=== PATIENT | female | born 1995 | race African-American/Black ===

== ENCOUNTER 2017-11-08 19:18 | Emergency (ER) | payer OTHER ==
[~2017-11-08] VITALS: Ht 162.6 cm; Wt 85.3 kg
[2017-11-08] MEDS ORDERED: NKM (19:27)
[2017-11-08] MEDS ORDERED: Ketorolac 60mg Inj IM ONE (19:45)
[2017-11-08] MEDS ORDERED: Methocarbamol 750mg tab ORAL ONE (19:45)
--- NOTE | 2017-11-08 19:47 | Emergency Room Report ---
History of Present Illness General Chief Complaint: Lower Back Pain or Injury Source: Patient Present Illness HPI 22-year-old female presents to the emergency department complaining of 8 out of 10 in severity bilateral flank pain with primary pain on the right side 2 days. Patient also reports several episodes of nausea she denies vomiting she denies blood in the stool. She reports some intermittent constipation last bowel movement was 2 days ago denies diarrhea, recent travel, fevers, chills, abdominal tenderness. She reports last menstrual period was 1-2 weeks ago she states she is not regular and has a period every 2 months approximately. Patient denies being sexually active. Patient denies hematuria, dysuria, urinary frequency, urgency. Denies trauma, fall or recent strenuous activity. Patient states she has not taken medications for her symptoms she reports pain is exacerbated upon standing up straight, bending over and changing positions. Denies numbness tingling or loss of sensation or gross motor movements of the extremities, incontinence of bowel or bladder. Denies CP, Palpitations, LOC, AMS , dizziness, Changes in Vision, Sensation, paresthesias, or a sudden severe headache. Allergies: Coded Allergies: No Known Allergies (Unverified , 11/08/17) Patient History Past Medical History: see triage record Past Surgical History: none Pertinent Family History: none Last Menstrual Period: "two weeks ago" Now: No Reviewed Nursing Documentation: PMH: Agreed; PSxH: Agreed Nursing Documentation-PMH Past Medical History: No Stated History Review of Systems All Other Systems: negative except mentioned in HPI Physical Exam Vital Signs Date Time Temp Pulse Resp B/P (MAP) Pulse Ox O2 Delivery O2 Flow Rate FiO2 11/08/17 19:23 98.7 76 18 115/59 99 Room Air 98.8 Sp02 EP Interpretation: reviewed, normal General Appearance: no apparent distress, alert, GCS 15, non-toxic Head: normocephalic, atraumatic ENT: hearing grossly normal, normal voice Neck: full range of motion, no bony tend Respiratory: chest non-tender, lungs clear, normal breath sounds, no wheezing, speaking full sentences Cardiovascular #1: regular rate, rhythm Gastrointestinal: normal bowel sounds, non tender, soft, non-distended, no guarding Rectal: deferred Genitourinary: normal inspection, no CVA tenderness Musculoskeletal: back normal, gait/station normal, normal range of motion - with pain exacerbation upon flexion at 20*, tender - Paraspinal ttp to the lumbar and lower thoracic musculature, no midline spinal pain. Neurologic: alert, oriented x3, responsive, motor strength/tone normal, sensory intact, normal gait, speech normal, grossly normal Psychiatric: judgement/insight normal Skin: normal color, no rash, warm/dry, well hydrated Medical Decision Making PA Attestation Dr. Bauer is my supervising Physician whom patient management has been discussed with. Diagnostic Impression: Primary Impression: UTI (urinary tract infection) Qualified Codes: N30.00 - Acute cystitis without hematuria Additional Impression: Back pain Qualified Codes: M54.5 - Low back pain ER Course 22-year-old female presents to the emergency department complaining of 8 out of 10 in severity bilateral flank pain with primary pain on the right side 2 days. Patient also reports several episodes of nausea she denies vomiting she denies blood in the stool. She reports some intermittent constipation last bowel movement was 2 days ago denies diarrhea, recent travel, fevers, chills, abdominal tenderness. She reports last menstrual period was 1-2 weeks ago she states she is not regular and has a period every 2 months approximately. Patient denies being sexually active. Patient denies hematuria, dysuria, urinary frequency, urgency. Denies trauma, fall or recent strenuous activity. Patient states she has not taken medications for her symptoms she reports pain is exacerbated upon standing up straight, bending over and changing positions. Denies numbness tingling or loss of sensation or gross motor movements of the extremities, incontinence of bowel or bladder. Denies CP, Palpitations, LOC, AMS , dizziness, Changes in Vision, Sensation, paresthesias, or a sudden severe headache. Ddx considered but are not limited to Diverticulitis, acute appendicitis, diarrhea,UC, PUD, GE, pancreatitis, gallstone, kidney stone, pyelonephritis, UTI , obstruction, muscle spasm, fracture, sciatica, neoplasm /abscess. Vital signs: are WNL, pt. is afebrile H&PE are most consistent with Suspect muscular skeletal origin of pain will evaluate urine for infection, or signs of stones. Physical exam is relatively benign patient is nontoxic in appearance in no acute distress. No indication of acute abdominal process. ORDERS: -UA: 3+ leukocytes with occasional bacteria will treat for UTI. nitrite negative. -Urine hCG: Negative ED INTERVENTIONS: -- Toradol IM 20 mg -750 mg Robaxin -Zofran 4 mg DISCHARGE: At this time pt. is stable for d/c to home. Will provide printed patient care instructions, and any necessary prescriptions. Care plan and follow up instructions have been discussed with the patient prior to discharge. Labs Test 11/08/17 20:40 Urine Color Pale yellow Urine Appearance Clear Urine pH 6 (4.5-8.0) Urine Specific [place] 1.010 (1.005-1.035) Urine Protein Negative (NEGATIVE) Urine Glucose (UA) Negative (NEGATIVE) Urine Ketones Negative (NEGATIVE) Urine Occult Blood Negative (NEGATIVE) Urine Nitrite Negative (NEGATIVE) Urine Bilirubin Negative (NEGATIVE) Urine Urobilinogen Normal MG/DL (0.0-1.0) Urine Leukocyte Esterase 3+ (NEGATIVE) Urine RBC 0-2 /HPF (0 - 2) Urine WBC 2-4 /HPF (0 - 2) Urine Squamous Epithelial Cells Few /LPF (NONE/OCC) Urine Bacteria Few /HPF (NONE) Urine HCG, Qualitative Negative (NEGATIVE) Last Vital Signs Date Time Temp Pulse Resp B/P (MAP) Pulse Ox O2 Delivery O2 Flow Rate FiO2 11/08/17 19:23 98.7 76 18 115/59 99 Room Air 98.8 Disposition: HOME, SELF-CARE Condition: Stable Scripts Methocarbamol* (ROBAXIN*) 500 Mg Tablet 500 MG PO TID for 7 Days, #21 TAB 0 Refills Prov: Veronica Dasilva 11/08/17 Nitrofurantoin Monohyd/M-Cryst* (MACROBID 100 MG*) 100 Mg Capsule 100 MG ORAL EVERY 12 HOURS for 5 Days, #10 CAP Prov: Veronica Dasilva 11/08/17 Patient Instructions: Urinary Tract Infection, [id number] Additional Instructions: Take medications as directed. Follow up with a Primary Care Provider in 3-5 days, even if your symptoms have resolved. --Please review list of primary care clinics, if you do not already have a primary care provider Return sooner to ED if new symptoms occur, or current symptoms become worse. Do not drink alcohol, drive, or operate heavy machinery while taking Robaxin/ Muscle Relaxers as this may cause drowsiness. - Please note that this Emergency Department Report was dictated using [employer] house worker technology software, occasionally this can lead to erroneous entry secondary to interpretation by the dictation equipment. Veronica Dasilva Nov 08, 2017 19:47
[2017-11-08 19:50] VITALS: BP 115/59
[2017-11-08 21:06] LABS: APPEARANCE,URINE CLEAR; BILIRUBIN, URINE NEGATIVE (NEGATIVE); COLOR,URINE PALE YELLOW; GLUCOSE, URINE (UA) NEGATIVE (NEGATIVE); KETONES,URINE NEGATIVE (NEGATIVE); LEUKOCYTE ESTERASE ,URINE 3+ (NEGATIVE); NITRITE,URINE NEGATIVE (NEGATIVE); PH,URINE 6 (4.5-8.0); PROTEIN,URINE NEGATIVE (NEGATIVE); UROBILINOGEN,URINE NORMAL MG/DL (0.0-1.0)
[2017-11-08] MEDS ORDERED: ROBAXIN500 MG PO (21:24)
[2017-11-08] MEDS ORDERED: NITROFURANTOIN100 M2 ORAL (21:24)
[2017-11-08 21:36] VITALS: BP 110/61
== END 2017-11-08 21:35 | disposition home or self-care (01) ==
LOC: EMR 19:35
DX: N39.0 Urinary tract infection, site not specified (principal); M54.5 Low back pain
CPT/HCPCS: 81003; 81025; 96372; 99284

== ENCOUNTER 2018-02-07 20:24 | Emergency (ER) | payer OTHER ==
[~2018-02-07] VITALS: Ht 162.6 cm; Wt 83.9 kg
[~2018-02-07 20:24] MED LIST: NITROFURANTOIN100 M2 ORAL; NKM; ROBAXIN500 MG PO
--- NOTE | 2018-02-07 20:46 | Emergency Room Report ---
History of Present Illness General Chief Complaint: Chest Pain Source: Patient Present Illness HPI 22-year-old female with no medical problems, not on any meds, denies is fevers, presents with midsternal nonradiating sharp chest pain worse with taking deep breaths. Symptoms aren't yesterday, has not recommend medications for it, has no other alleviating or gasping factors. Denies fevers chills but does report shortness of breath. Denies leg pain leg swelling cough hemoptysis any other problems. Allergies: Uncoded Allergies: PEACHES (Allergy, Unknown, Hives, 02/07/18) Patient History Past Medical History: see triage record Last Menstrual Period: 01/2018 Now: No Reviewed Nursing Documentation: PMH: Agreed; PSxH: Agreed Nursing Documentation-PMH Past Medical History: No Stated History Review of Systems All Other Systems: negative except mentioned in HPI Physical Exam Vital Signs Date Time Temp Pulse Resp B/P (MAP) Pulse Ox O2 Delivery O2 Flow Rate FiO2 02/07/18 20:34 98.6 91 16 146/84 98 Room Air 98.6 Sp02 EP Interpretation: reviewed, normal General Appearance: no apparent distress, alert, non-toxic Head: normocephalic Eyes: bilateral eye normal inspection, bilateral eye PERRL, bilateral eye EOMI ENT: normal ENT inspection, hearing grossly normal, normal pharynx, no angioedema, normal voice, moist mucus membranes Neck: normal inspection, full range of motion, supple, supple/symm/no masses Respiratory: chest non-tender, lungs clear, normal breath sounds, chest symmetrical, palpation of chest normal Cardiovascular #1: normal peripheral pulses, regular rate, rhythm Cardiovascular #2: 2+ radial (R), 2+ radial (L) Gastrointestinal: normal inspection, non tender, soft, no mass, no guarding, no rebound Rectal: deferred Genitourinary: normal inspection, no CVA tenderness Musculoskeletal: back normal, gait/station normal, normal range of motion, non- tender, no calf tenderness, Kalpana's Sign negative Neurologic: alert, responsive, deployment manager III-XII nml as tested, motor strength/tone normal, sensory intact, speech normal Psychiatric: judgement/insight normal, memory normal, mood/affect normal, no suicidal/homicidal ideation Skin: normal color, no rash, warm/dry, normal turgor Lymphatic: no adenopathy Medical Decision Making Diagnostic Impression: Primary Impression: Chest pain ER Course 22-year-old female with respirophasic chest pain, appears in no extremities, has no risk factors for PE other than a reported family history of hands with blood clots. She has no signs or symptoms of DVT, we'll obtain basic labs EKG chest x-ray d-dimer and treat with ibuprofen for now. Patient's HR improved to the 70's, she feels better. I suspect most likely pleurisy and will dc with rx for ibuprofen if d-dimer negative. EKG Diagnostic Results EKG Time: 20:42 EP Interpretation: no st-t changes, no twi's Rate: tachycardiac Rhythm: NSR ST Segments: no acute changes ASA given to the pt in ED: No Rhythm Strip Diag. Results Rhythm Strip Time: 21:20 EP Interpretation: yes Rate: 74 Rhythm: NSR, no PVC's, no ectopy Chest X-Ray Diagnostic Results Chest X-Ray Diagnostic Results : Chest X-Ray Ordered: Yes # of Views/Limited/Complete: 1 View Indication: Chest Pain EP Interpretation: Yes Interpretation: no consolidation, no effusion, no pneumothorax, no acute cardiopulmonary disease Impression: No acute disease Electronically Signed by: Rebekah Ruff MD Last Vital Signs Date Time Temp Pulse Resp B/P (MAP) Pulse Ox O2 Delivery O2 Flow Rate FiO2 02/07/18 20:34 98.6 91 16 146/84 98 Room Air 98.6 Scripts Ibuprofen* (MOTRIN*) 600 Mg Tablet 600 MG ORAL THREE TIMES A DAY, #20 TAB 0 Refills Prov: REBEKAH RUFF M.D 02/07/18 REBEKAH RUFF M.D Feb 07, 2018 20:46
[2018-02-07 20:57] VITALS: BP 149/84
[2018-02-07 21:14] LABS: BASOPHILS % (AUTO) 1.2 % (0.0-2.0); EOSINOPHILS % (AUTO) 0.3 % (0.0-3.0); HEMATOCRIT 37.4 % (37.0-47.0); HEMOGLOBIN 12.2 G/DL (12.0-16.0); LYMPHOCYTES % (AUTO) 17.7 % (20.0-45.0); MEAN CORPUSCULAR VOLUME 80 FL (80-99); MONOCYTES % (AUTO) 7.5 % (1.0-10.0); NEUTROPHILS % (AUTO) 73.3 % (45.0-75.0); PLATELET COUNT 288 K/UL (150-450); RED BLOOD COUNT 4.67 M/UL (4.20-5.40); RED CELL DISTRIBUTION WIDTH 12.4 % (11.6-14.8); WHITE BLOOD COUNT 14.4 K/UL (4.8-10.8)
[2018-02-07] MEDS ORDERED: IBUPROFEN600 MG ORAL (21:23)
[2018-02-07 21:25] LABS: ANION GAP 12 mmol/L (5-15); BLOOD UREA NITROGEN 12 mg/dL (7-18); CALCIUM 9.3 MG/DL (8.5-10.1); CARBON DIOXIDE 23 MMOL/L (21-32); CHLORIDE 102 MMOL/L (98-107); CREATININE 0.9 MG/DL (0.55-1.30); POTASSIUM 3.5 MMOL/L (3.5-5.1); SODIUM 137 MMOL/L (136-145)
[2018-02-07 21:29] LABS: ALANINE AMINOTRANSFERASE 17 U/L (12-78); ALBUMIN 3.9 G/DL (3.4-5.0); ALBUMIN/GLOBULIN RATIO 0.8 (1.0-2.7); ALKALINE PHOSPHATASE 71 U/L (46-116); ASPARTATE AMINO TRANSFERASE 15 U/L (15-37); BILIRUBIN,TOTAL 0.4 MG/DL (0.2-1.0)
[2018-02-07 21:49] VITALS: BP 125/76
--- NOTE | 2018-02-08 11:17 | Diagnostic Imaging Report ---
Indication: Chest pain Comparison: None A single view chest radiograph was obtained. Findings: Cardiomediastinal appearance is within normal limits for age. Pulmonary vascularity is appropriate. The diaphragmatic contour is smooth and costophrenic angles are sharp. No pleural effusions are identified. The bones are unremarkable. Impression: No acute findings
--- NOTE | 2018-02-09 00:36 | Cardiology Report ---
APPROVED REPORT EKG Measurement Heart [id number] ID [id number] Sinus tachycardia Possible Left atrial enlargement Borderline ECG
== END 2018-02-07 21:53 | disposition home or self-care (01) ==
LOC: EMR 21:52
DX: R07.9 Chest pain, unspecified (principal); Z91.018 Allergy to other foods; R00.0 Tachycardia, unspecified
CPT/HCPCS: 36415; 71045; 80053; 84484; 85025; 85379; 93005; 99283

== ENCOUNTER 2018-02-17 06:56 | Emergency (ER) | payer OTHER ==
[~2018-02-17] VITALS: Ht 162.6 cm; Wt 85.3 kg
[~2018-02-17 06:56] MED LIST changes: +IBUPROFEN600 MG ORAL
[2018-02-17] MEDS ORDERED: DiphenhydrAMINE 50mg/ml Inj IVP ONE (07:30)
[2018-02-17] MEDS ORDERED: Metoclopramide 10mg/2ml Inj IVP ONE (07:30)
[2018-02-17 08:18] LABS: BASOPHILS % (AUTO) 0.8 % (0.0-2.0); EOSINOPHILS % (AUTO) 0.8 % (0.0-3.0); HEMATOCRIT 37.7 % (37.0-47.0); LYMPHOCYTES % (AUTO) 25.2 % (20.0-45.0); MEAN CORPUSCULAR VOLUME 81 FL (80-99); MONOCYTES % (AUTO) 8.6 % (1.0-10.0); NEUTROPHILS % (AUTO) 64.6 % (45.0-75.0); PLATELET COUNT 309 K/UL (150-450); RED BLOOD COUNT 4.63 M/UL (4.20-5.40); RED CELL DISTRIBUTION WIDTH 12.5 % (11.6-14.8); WHITE BLOOD COUNT 7.3 K/UL (4.8-10.8)
[2018-02-17 08:22] LABS: APPEARANCE,URINE TURBID; BILIRUBIN, URINE NEGATIVE (NEGATIVE); GLUCOSE, URINE (UA) NEGATIVE (NEGATIVE); KETONES,URINE 1+ (NEGATIVE); LEUKOCYTE ESTERASE ,URINE 1+ (NEGATIVE); NITRITE,URINE NEGATIVE (NEGATIVE); PH,URINE 5 (4.5-8.0); PROTEIN,URINE 2+ (NEGATIVE); UROBILINOGEN,URINE 1 MG/DL (0.0-1.0)
[2018-02-17 08:25] LABS: COLOR,URINE YELLOW
[2018-02-17 08:32] LABS: ANION GAP 9 mmol/L (5-15); BLOOD UREA NITROGEN 12 mg/dL (7-18); CALCIUM 8.9 MG/DL (8.5-10.1); CARBON DIOXIDE 27 MMOL/L (21-32); CHLORIDE 106 MMOL/L (98-107); CREATININE 0.9 MG/DL (0.55-1.30); POTASSIUM 3.4 MMOL/L (3.5-5.1); SODIUM 141 MMOL/L (136-145)
[2018-02-17 08:37] LABS: ALANINE AMINOTRANSFERASE 16 U/L (12-78); ALBUMIN 3.7 G/DL (3.4-5.0); ALBUMIN/GLOBULIN RATIO 0.9 (1.0-2.7); ALKALINE PHOSPHATASE 69 U/L (46-116); ASPARTATE AMINO TRANSFERASE 11 U/L (15-37); BILIRUBIN,TOTAL 0.5 MG/DL (0.2-1.0)
--- NOTE | 2018-02-17 08:57 | Emergency Room Report ---
History of Present Illness General Chief Complaint: Abdominal Pain Source: Patient Present Illness HPI Patient presents with vomiting and epigastric pain. This been going on for several days. She states she can't eat anything because it comes back up including water and causes pain. The pain is sharp and epigastric. Pain rated 9/10, worsened with eating or drinking. No meds taken. No melena, hematemesis. In addition to that she is under a lot of stress. Mainly relationship. She does have a job. She feels safe at home. She's not had any help for the stress. Depressed but no SI or HI. Her last period was 2 days ago. Was normal. No fevers, chest pain, dyspnea, rashes, dysuria, joint pain. 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 Last Menstrual Period: 02/15/18 Now: No Reviewed Nursing Documentation: PMH: Agreed; PSxH: Agreed Nursing Documentation-PMH Past Medical History: No Stated History Review of Systems All Other Systems: negative except mentioned in HPI Physical Exam Vital Signs Date Time Temp Pulse Resp B/P (MAP) Pulse Ox O2 Delivery O2 Flow Rate FiO2 02/17/18 07:13 98.5 73 16 121/72 97 Room Air 98.4 Sp02 EP Interpretation: reviewed, normal General Appearance: well appearing, no apparent distress, GCS 15 Head: normocephalic Eyes: bilateral eye normal inspection, bilateral eye PERRL ENT: moist mucus membranes - braces Neck: supple Respiratory: lungs clear, normal breath sounds Cardiovascular #1: regular rate, rhythm Cardiovascular #2: 2+ radial (R) Gastrointestinal: normal inspection, normal bowel sounds, no mass, non- distended, no guarding, no rebound, tenderness - epgastric reported Genitourinary: no CVA tenderness Musculoskeletal: back normal, gait/station normal, normal range of motion Neurologic: alert, oriented x3, grossly normal Psychiatric: no suicidal/homicidal ideation, depressed affect - and tearful Skin: normal inspection, warm/dry Medical Decision Making Diagnostic Impression: Primary Impression: Abdominal pain Qualified Codes: R10.13 - Epigastric pain Additional Impressions: UTI (urinary tract infection) Qualified Codes: N30.00 - Acute cystitis without hematuria Stress ER Course Patient presents with epigastric pain and increased stress. DDX: gastritis, GERD, PUD, pancreatitis amongst others. Significant stress component. Evaluation with EKG, CXR, labs. Treatment with IV hydration, pepcid, reglan, benadryl. Also will give tylenol. EKG no injury. CXR normal. Labs unremarkable except for pyuria. Pain resolved. Reluctant to drink juice, but tolerated water without difficulty. Discussion about stress. Moved to [place] and relationship fell apart. Now away from family. Discussed seeking help. Also need for re-evaluation of epigastric pain. Patient improved. Stable for outpatient observation and treatment. Laboratory Tests Test 02/17/18 07:50 White Blood Count 7.3 K/UL (4.8-10.8) Red Blood Count 4.63 M/UL (4.20-5.40) Hemoglobin 12.0 G/DL (12.0-16.0) Hematocrit 37.7 % (37.0-47.0) Mean Corpuscular Volume 81 FL (80-99) Mean Corpuscular Hemoglobin 25.8 PG (27.0-31.0) L Mean Corpuscular Hemoglobin Concent 31.7 G/DL (32.0-36.0) L Red Cell Distribution Width 12.5 % (11.6-14.8) Platelet Count 309 K/UL (150-450) Mean Platelet Volume 7.0 FL (6.5-10.1) Neutrophils (%) (Auto) 64.6 % (45.0-75.0) Lymphocytes (%) (Auto) 25.2 % (20.0-45.0) Monocytes (%) (Auto) 8.6 % (1.0-10.0) Eosinophils (%) (Auto) 0.8 % (0.0-3.0) Basophils (%) (Auto) 0.8 % (0.0-2.0) Urine Color Yellow Urine Appearance Turbid Urine pH 5 (4.5-8.0) Urine Specific [place] 1.030 (1.005-1.035) Urine Protein 2+ (NEGATIVE) H Urine Glucose (UA) Negative (NEGATIVE) Urine Ketones 1+ (NEGATIVE) H Urine Occult Blood 4+ (NEGATIVE) H Urine Nitrite Negative (NEGATIVE) Urine Bilirubin Negative (NEGATIVE) Urine Urobilinogen 1 MG/DL (0.0-1.0) H Urine Leukocyte Esterase 1+ (NEGATIVE) H Urine RBC 2-4 /HPF (0 - 2) H Urine WBC 5-10 /HPF (0 - 2) H Urine Squamous Epithelial Cells Few /LPF (NONE/OCC) Urine Bacteria Few /HPF (NONE) Urine Mucus Many /LPF (NONE/OCC) H Urine HCG, Qualitative Negative (NEGATIVE) Sodium Level 141 MMOL/L (136-145) Potassium Level 3.4 MMOL/L (3.5-5.1) L Chloride Level 106 MMOL/L (98-107) Carbon Dioxide Level 27 MMOL/L (21-32) Anion Gap 9 mmol/L (5-15) Blood Urea Nitrogen 12 mg/dL (7-18) Creatinine 0.9 MG/DL (0.55-1.30) Estimate Glomerular Filtration Rate > 60 mL/min (>60) Glucose Level 101 MG/DL (74-106) Calcium Level 8.9 MG/DL (8.5-10.1) Total Bilirubin 0.5 MG/DL (0.2-1.0) Aspartate Amino Transferase (AST) 11 U/L (15-37) L Alanine Aminotransferase (ALT) 16 U/L (12-78) Alkaline Phosphatase 69 U/L (46-116) Total Protein 7.9 G/DL (6.4-8.2) Albumin 3.7 G/DL (3.4-5.0) Globulin 4.2 g/dL Albumin/Globulin Ratio 0.9 (1.0-2.7) L Lipase 182 U/L (73-393) EKG Diagnostic Results Rate: normal Rhythm: NSR ST Segments: no acute changes Rhythm Strip Diag. Results EP Interpretation: yes Rhythm: NSR, no PVC's, no ectopy Chest X-Ray Diagnostic Results Chest X-Ray Diagnostic Results : Chest X-Ray Ordered: Yes # of Views/Limited/Complete: 1 View Indication: Other EP Interpretation: Yes Interpretation: no consolidation, no effusion, no pneumothorax Impression: No acute disease Electronically Signed by: Electronically signed by Eitan Beltran MD Last Vital Signs Date Time Temp Pulse Resp B/P (MAP) Pulse Ox O2 Delivery O2 Flow Rate FiO2 02/17/18 11:30 89 18 122/77 99 Room Air 02/17/18 10:31 98.8 98.8 Status: improved Disposition: HOME, SELF-CARE Condition: Improved Scripts Ondansetron Odt* (ZOFRAN ODT*) 4 Mg Tab.rapdis 4 MG BC EVERY 8 HOURS, #10 TAB 0 Refills Prov: Eitan Beltran M.D. 02/17/18 Famotidine (PEPCID AC) 20 Mg Tablet 20 MG PO DAILY, #20 TAB 1 Refill Prov: Eitan Beltran M.D. 02/17/18 Nitrofurantoin Monohyd/M-Cryst* (MACROBID 100 MG*) 100 Mg Capsule 100 MG ORAL EVERY 12 HOURS, #14 CAP Prov: Eitan Beltran M.D. 02/17/18 Referrals: NOT APPLICABLE THIS PATIENT,RE (PCP) Eitan Beltran M.D. Feb 17, 2018 08:57
[2018-02-17] MEDS ORDERED: cefTRIAXone 1 GM in NS 55 ML IVPB ONE (10:00)
[2018-02-17 10:31] VITALS: BP 127/78
[2018-02-17] MEDS ORDERED: PEPCID AC20 M2 PO (11:17)
[2018-02-17] MEDS ORDERED: ONDANSETRON ODT4 MG BC (11:17)
[2018-02-17] MEDS ORDERED: NITROFURANTOIN100 M2 ORAL (11:17)
[2018-02-17 11:30] VITALS: BP 122/77
--- NOTE | 2018-02-17 11:30 | Diagnostic Imaging Report ---
Indication: Chest pain Comparison: February 07, 2018 A single view chest radiograph was obtained. Findings: Cardiomediastinal appearance is within normal limits for age. Pulmonary vascularity is appropriate. The diaphragmatic contour is smooth and costophrenic angles are sharp. No pleural effusions are identified. The bones are unremarkable. Impression: No acute findings
--- NOTE | 2018-02-20 12:21 | Cardiology Report ---
APPROVED REPORT EKG Measurement Heart [id number] AL [id number] Normal sinus rhythm with sinus arrhythmia Normal ECG
== END 2018-02-17 12:14 | disposition home or self-care (01) ==
LOC: EMR 07:36
DX: N30.00 Acute cystitis without hematuria (principal); R10.13 Epigastric pain; F43.9 Reaction to severe stress, unspecified; Z91.018 Allergy to other foods; R07.9 Chest pain, unspecified
CPT/HCPCS: 36415; 71045; 80053; 81003; 81025; 83690; 85025; 93005; 99284; J0696; J1200; J2765; S0028

== ENCOUNTER 2018-09-29 08:38 | Emergency (ER) | payer OTHER ==
[~2018-09-29] VITALS: Ht 162.6 cm; Wt 81.6 kg
[~2018-09-29 08:38] MED LIST changes: +ONDANSETRON ODT4 MG BC; +PEPCID AC20 M2 PO
--- NOTE | 2018-09-29 08:44 | Emergency Room Report ---
History of Present Illness General Chief Complaint: To Be Triaged Source: Patient Present Illness HPI 23-year-old female presents with sore throat, odynophagia, hoarse voice for the past few days, reports + h/o same multiple times over the years. She denies blurred vision, f/c, cough, neck stiffness. She reports constant pain, moderate intensity, and hasn't tried meds for it. Allergies: Uncoded Allergies: PEACHES (Allergy, Unknown, Hives, 02/07/18) Patient History Past Medical History: see triage record Reviewed Nursing Documentation: PMH: Agreed; PSxH: Agreed Review of Systems All Other Systems: negative except mentioned in HPI Physical Exam Sp02 EP Interpretation: reviewed, normal General Appearance: no apparent distress, alert, non-toxic Head: normocephalic Eyes: bilateral eye normal inspection, bilateral eye PERRL, bilateral eye EOMI ENT: normal ENT inspection, hearing grossly normal, no angioedema, normal voice - slightly hoarse, TMs + canals normal, uvula midline, moist mucus membranes, tonsillar swelling, pharyngeal erythema, tonsillar exudate - B/L symmetrical erythema/exudates, but patent airway, no suspicions for abscess Neck: normal inspection, full range of motion, supple, supple/symm/no masses Respiratory: chest non-tender, lungs clear, normal breath sounds, no rhonchi, no respiratory distress, no retraction, no accessory muscle use, speaking full sentences - no stridor, no hot potato voice, chest symmetrical, palpation of chest normal Cardiovascular #1: normal peripheral pulses, regular rate, rhythm Cardiovascular #2: 2+ radial (R), 2+ radial (L) Gastrointestinal: normal inspection, non tender, soft, no mass, no guarding, no rebound Rectal: deferred Genitourinary: normal inspection, no CVA tenderness Musculoskeletal: back normal, gait/station normal, normal range of motion, non- tender, no calf tenderness Neurologic: alert, responsive, inker machine III-XII nml as tested, motor strength/tone normal, sensory intact, speech normal Psychiatric: judgement/insight normal, memory normal, mood/affect normal Skin: normal color, no rash, warm/dry, normal turgor Lymphatic: adenopathy - b/l submandibular LAD, slighlty prominent and tender symmetrically Medical Decision Making Diagnostic Impression: Primary Impression: Acute pharyngitis ER Course Patient with likely strep tonsillitis, was given im penicillin, decadron , will dc with ENT f/u recs for tonsillectomy. Disposition: HOME, SELF-CARE Condition: Stable Scripts Ibuprofen* (MOTRIN*) 600 Mg Tablet 600 MG ORAL Q8H PRN for For Pain, #10 TAB 0 Refills Prov: REBEKAH RUFF M.D 09/29/18 Benzonatate* (TESSALON PERLRita*) 100 Mg Capsule 100 MG ORAL THREE TIMES A DAY for 3 Days, #10 PERLE Prov: REBEKAH RUFF M.D 09/29/18 REBEKAH RUFF M.D Sep 29, 2018 08:44
[2018-09-29] MEDS ORDERED: TESSALON PERLE100 MG ORAL (08:46)
[2018-09-29] MEDS ORDERED: IBUPROFEN600 MG ORAL (08:46)
[2018-09-29 08:50] VITALS: BP 124/76
--- NOTE | 2018-09-29 08:52 | NUR ---
ED Nurse Note: patient walked in from home c/o sore throat, headache x 2 days; patient denies any fever or chills.
[2018-09-29] MEDS ORDERED: Ketorolac 30mg Inj IM ONE (09:00)
[2018-09-29] MEDS ORDERED: Bicillin LA 1.2MMU/2ML SYR IM ONE (09:00)
[2018-09-29] MEDS ORDERED: Dexamethasone 4mg/ml vial IM ONE (09:00)
--- NOTE | 2018-09-29 09:03 | NUR ---
ED Nurse Note: verified with patient that patient has no known drug allergy. patient denies allergy to pcn, pt is a/o x4,
[2018-09-29] MEDS ORDERED: Dexamethasone 4mg/ml vial ONE (09:04)
[2018-09-29 09:14] VITALS: BP 124/76
--- NOTE | 2018-09-29 09:15 | NUR ---
ER DISCHARGE NOTE: Patient is cleared to be discharged per ERMD, pt is aox4, on room air, with stable vital signs. pt was given dc and prescription instructions, pt was able to verbalize understanding, pt id band removed. pt is able to ambulate with steady gait. pt took all belongings.
== END 2018-09-29 09:25 | disposition home or self-care (01) ==
LOC: EMR 09:07
DX: J02.9 Acute pharyngitis, unspecified (principal)
CPT/HCPCS: 96372; 99283; J0561; J1100; J1885

== ENCOUNTER 2018-10-02 08:52 | Emergency (ER) | payer OTHER ==
[~2018-10-02] VITALS: Ht 162.6 cm; Wt 88.5 kg
[~2018-10-02 08:52] MED LIST changes: +TESSALON PERLE100 MG ORAL
[2018-10-02 09:04] VITALS: BP 120/71
--- NOTE | 2018-10-02 09:06 | NUR ---
ED Nurse Note: Pt walked in to ER c/o sore throat 04/18 and earache. per pt, she was her at [facility] ER 2 days ago and received a shot which she does not remember the name. but sore throat gets worse and she felt like she could not breath when she woke up this morning because of swollen and dry throat. pt aao x4 and calm. skin clean and intact.
--- NOTE | 2018-10-02 09:10 | NUR ---
ED Nurse Note: inspected pt's throat and white mucus lesion noted.
--- NOTE | 2018-10-02 10:18 | NUR ---
ED Nurse Note: ERMD at bedside talking to pt.
--- NOTE | 2018-10-02 10:22 | Emergency Room Report ---
History of Present Illness General Chief Complaint: Sore Throat Source: Patient Present Illness HPI 23-year-old female otherwise healthy, who was seen here several days ago and was apparently given shots of Decadron and penicillin. She returns with worsening throat pain. She feels like her throat is closing. She denies any fever. She denies any change in voice. She denies any vomiting. She denies any abdominal pain. She denies any drooling. Allergies: Uncoded Allergies: PEACHES (Allergy, Unknown, Hives, 02/07/18) Patient History Past Surgical History: none Pertinent Family History: none Now: No Nursing Documentation-[facility] Past Medical History: No Stated History Review of Systems All Other Systems: negative except mentioned in HPI Physical Exam Vital Signs Date Time Temp Pulse Resp B/P (MAP) Pulse Ox O2 Delivery O2 Flow Rate FiO2 10/02/18 08:57 98.4 66 18 120/71 98 Room Air General Appearance: well appearing, no apparent distress ENT: hearing grossly normal, no angioedema, normal voice, uvula midline, pharyngeal erythema, tonsillar exudate Respiratory: no respiratory distress, speaking full sentences Cardiovascular #1: normal inspection, regular rate, rhythm, no edema Gastrointestinal: non tender, soft Musculoskeletal: normal inspection, back normal Neurologic: normal inspection, alert, oriented x3 Medical Decision Making Diagnostic Impression: Primary Impression: Tonsillitis ER Course Patient has had multiple bedside evaluations. Particularly very concerned about abscess. I also considered peritonsillar abscess, epiglottitis, retropharyngeal abscess. I did review the patient's record. The patient did receive Decadron several days ago. The patient also received penicillin. CT was reviewed. It showed no evidence of abscess. We will start the patient on stronger pain medication. I'm also advised the patient to continue with the ibuprofen. I also advised the patient for several more Garbo. And we will also start the patient on clindamycin by mouth she was given an emergent dose of IV clindamycin in the emergency department. Last Vital Signs Date Time Temp Pulse Resp B/P (MAP) Pulse Ox O2 Delivery O2 Flow Rate FiO2 10/02/18 09:04 98.4 67 18 120/71 98 Room Air Status: improved Disposition: HOME, SELF-CARE Condition: Stable Scripts Hydrocodone/Acetaminophen 7.5-325* (HYDROCODON-ACETAMINOPH 7.5-325*) 1 Each Tablet 1 TAB ORAL Q6H PRN for For Pain, #10 TAB 0 Refills Prov: ROBBIN PECK 10/02/18 Clindamycin Hcl (CLINDAMYCIN HCL) 300 Mg Capsule 300 MG ORAL THREE TIMES A DAY, #21 CAP Prov: ROBBIN PECK 10/02/18 Patient Instructions: Tonsillitis ROBBIN PECK Oct 02, 2018 10:22
[2018-10-02] MEDS ORDERED: Isovue-300 100ml vial INJ PRN (10:30)
[2018-10-02] MEDS ORDERED: Morphine Sulfate 4mg/ml Inj (IV USE ONLY) IVP ONE (10:30)
[2018-10-02] MEDS ORDERED: Clindamycin 600mg 50 ML IVPB ONE (10:30)
[2018-10-02 10:58] LABS: EOSINOPHILS % (AUTO) 1.9 % (0.0-3.0); LYMPHOCYTES % (AUTO) 23.2 % (20.0-45.0); MEAN CORPUSCULAR VOLUME 82 FL (80-99); MONOCYTES % (AUTO) 10.1 % (1.0-10.0); NEUTROPHILS % (AUTO) 63.8 % (45.0-75.0); PLATELET COUNT 337 K/UL (150-450); RED BLOOD COUNT 4.61 M/UL (4.20-5.40); RED CELL DISTRIBUTION WIDTH 12.9 % (11.6-14.8); WHITE BLOOD COUNT 9.4 K/UL (4.8-10.8)
[2018-10-02 11:04] VITALS: BP 136/66
[2018-10-02 11:30] LABS: ANION GAP 8 mmol/L (5-15); BLOOD UREA NITROGEN 8 mg/dL (7-18); CALCIUM 8.8 MG/DL (8.5-10.1); CARBON DIOXIDE 27 MMOL/L (21-32); CHLORIDE 104 MMOL/L (98-107); CREATININE 0.8 MG/DL (0.55-1.30); POTASSIUM 3.8 MMOL/L (3.5-5.1); SODIUM 138 MMOL/L (136-145)
[2018-10-02 11:35] LABS: ALANINE AMINOTRANSFERASE 16 U/L (12-78); ALBUMIN 3.7 G/DL (3.4-5.0); ALBUMIN/GLOBULIN RATIO 0.8 (1.0-2.7); ALKALINE PHOSPHATASE 75 U/L (46-116); ASPARTATE AMINO TRANSFERASE 12 U/L (15-37); BILIRUBIN,TOTAL 0.3 MG/DL (0.2-1.0)
[2018-10-02] MEDS ORDERED: CLINDAMYCIN HC300 MG ORAL (13:36)
[2018-10-02] MEDS ORDERED: HYDROCODON-ACE1 EA16 ORAL (13:36)
[2018-10-02 13:50] VITALS: BP 136/66
--- NOTE | 2018-10-02 13:50 | NUR ---
ER DISCHARGE NOTE: Patient is cleared to be discharged per ERMD, pt is aox4, on room air, with stable vital signs, accompanied by parents. pt was given dc and prescription instructions, pt was able to verbalize understanding, pt id band and iv site removed without complications. pt is able to ambulate with steady gait. pt took all belongings.
== END 2018-10-02 13:50 | disposition home or self-care (01) ==
LOC: EMR 10:30
DX: J03.90 Acute tonsillitis, unspecified (principal)
CPT/HCPCS: 36415; 70491; 80053; 84702; 85025; 96365; 96375; 99284; J2270; Q9967; S0077

== ENCOUNTER 2019-02-04 23:27 | Emergency (ER) | payer OTHER ==
[~2019-02-04] VITALS: Ht 162.6 cm; Wt 86.2 kg
[~2019-02-04 23:27] MED LIST changes: +CLINDAMYCIN HC300 MG ORAL; +HYDROCODON-ACE1 EA16 ORAL
--- NOTE | 2019-02-04 23:45 | NUR ---
ED Nurse Note: pt walked in c/o headache x 3days and nausea, denies vomiting nor other sx. pt AA&ox4, gcs=15, skin warm and dry, resp even and unlabored on RA, vss, ambulatory w/ steady gait, will cont monitor.
--- NOTE | 2019-02-05 00:03 | Emergency Room Report ---
History of Present Illness General Chief Complaint: Headache Source: Patient, Significant Other Present Illness HPI The patient presents with 2 days of headache. It began gradually. She feels it on both sides of the frontal/temporal area. She also feels some neck stiffness and tenderness bilaterally. She denies any fevers or chills. There is some dizziness and she is felt little bit disoriented. She is under a lot of stress at this time from her job. She has had headaches like this in the past. It has been a while. Her cycles are abnormal however she is not sexually active with males and does not believe she is . There is no scotomata or aura. She is not taking blood thinners and denies oncologic problems. No polies. She feels some nausea and has minimal epigastric discomfort. She denies vomiting. There is no dysuria. She denies rashes. There is no history of trauma. She has not been eating well and feels somewhat dehydrated. 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 Period: 01-21-2019 Now: No Reviewed Nursing Documentation: PMH: Agreed; PSxH: Agreed Nursing Documentation-PMH Past Medical History: No Stated History Review of Systems All Other Systems: negative except mentioned in HPI Physical Exam Vital Signs Date Time Temp Pulse Resp B/P (MAP) Pulse Ox O2 Delivery O2 Flow Rate FiO2 02/04/19 23:29 98.1 96 16 144/87 (106) 97 Room Air Sp02 EP Interpretation: reviewed, normal General Appearance: well appearing, no apparent distress, alert, GCS 15 Head: normocephalic, atraumatic Eyes: bilateral eye normal inspection, bilateral eye PERRL, bilateral eye EOMI ENT: hearing grossly normal, normal voice, moist mucus membranes Neck: full range of motion, supple, no meningismus, tender - bilaterally, minimal, muscular Respiratory: lungs clear, normal breath sounds, no respiratory distress, speaking full sentences Cardiovascular #1: regular rate, rhythm Cardiovascular #2: 2+ radial (R) Gastrointestinal: normal inspection, soft, no guarding, no rebound, tenderness - Reported epigastric, overweight Musculoskeletal: back normal, digits/nails normal, gait/station normal, normal range of motion Neurologic: alert, oriented x3, 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 Differential includes tension, migraine, stress, dehydration, viral syndrome, sinusitis amongst others. Based on her exam tension headache is high in the list. Exam and history is against subarachnoid bleed and meningitis. The patient is against taking medications however agrees to take ibuprofen at this time. Urinalysis will be checked. Orthostatics will be performed. Patient declined IV oral fluid intake suggested. Patient with minimal increase in pulse from sitting up. Urinalysis clear. Patient improved with treatment. Discussed treatment plan. Also discussed outpatient observation and suggested means for stress reduction. Patient stable for outpatient observation and treatment. Laboratory Tests Test 02/05/19 00:04 Urine Color Pale yellow Urine Appearance Clear Urine pH 6 (4.5-8.0) Urine Specific [place] 1.010 (1.005-1.035) Urine Protein Negative (NEGATIVE) Urine Glucose (UA) Negative (NEGATIVE) Urine Ketones Negative (NEGATIVE) Urine Blood Negative (NEGATIVE) Urine Nitrite Negative (NEGATIVE) Urine Bilirubin Negative (NEGATIVE) Urine Urobilinogen Normal MG/DL (0.0-1.0) Urine Leukocyte Esterase Negative (NEGATIVE) Urine HCG, Qualitative Negative (NEGATIVE) Last Vital Signs Date Time Temp Pulse Resp B/P (MAP) Pulse Ox O2 Delivery O2 Flow Rate FiO2 02/05/19 00:50 97.4 80 16 121/76 97 Room Air Status: improved Disposition: HOME, SELF-CARE Condition: Improved Scripts Ondansetron Odt* (ZOFRAN ODT*) 4 Mg Tab.rapdis 4 MG BC EVERY 8 HOURS, #6 TAB 1 Refill Prov: Eitan Beltran MD 02/05/19 Ibuprofen* (MOTRIN*) 600 Mg Tablet 600 MG ORAL Q6H PRN for For Pain, #16 TAB 0 Refills Prov: Eitan Beltran MD 02/05/19 Referrals: RAY DASILVA [facility] (PCP) Eitan Beltran MD Feb 05, 2019 00:03
--- NOTE | 2019-02-05 00:12 | NUR ---
ED Nurse Note: urine specimen sent to lab.
[2019-02-05 00:13] VITALS: BP 144/87
[2019-02-05 00:14] VITALS: BP_SYST 111; BP_SYST 128; BP_DIAS 69; BP_DIAS 82; BP_DIAS 85
[2019-02-05 00:20] LABS: APPEARANCE,URINE CLEAR; BILIRUBIN, URINE NEGATIVE (NEGATIVE); COLOR,URINE PALE YELLOW; GLUCOSE, URINE (UA) NEGATIVE (NEGATIVE); KETONES,URINE NEGATIVE (NEGATIVE); LEUKOCYTE ESTERASE ,URINE NEGATIVE (NEGATIVE); NITRITE,URINE NEGATIVE (NEGATIVE); PH,URINE 6 (4.5-8.0); PROTEIN,URINE NEGATIVE (NEGATIVE); UROBILINOGEN,URINE NORMAL MG/DL (0.0-1.0)
[2019-02-05] MEDS ORDERED: IBUPROFEN600 MG ORAL (00:42)
[2019-02-05] MEDS ORDERED: ONDANSETRON ODT4 MG BC (00:42)
--- NOTE | 2019-02-05 00:49 | NUR ---
ED Nurse Note: pt cleared to be d/c per ERMD, pt discharge and aftercare instruction provided w/ prescription, pt education done via discussion and handout, pt advised to follow up with pcp or return to ed if changes in condition, vss, ambulatory w/ steady gait, left w/ all belongings accompanied by friend.
[2019-02-05 00:50] VITALS: BP 121/76
== END 2019-02-05 00:50 | disposition home or self-care (01) ==
LOC: EMR 23:54
DX: G44.209 Tension-type headache, unspecified, not intractable (principal); F43.9 Reaction to severe stress, unspecified; E86.0 Dehydration; E11.9 Type 2 diabetes mellitus without complications
CPT/HCPCS: 81003; 81025; 99283

== ENCOUNTER 2019-04-13 09:30 | Emergency (ER) | payer SELFPAY ==
[~2019-04-13] VITALS: Ht 162.6 cm; Wt 95.3 kg
--- NOTE | 2019-04-13 09:44 | NUR ---
ED Nurse Note: PT WALKED IN TO ER TODAY FROM HOME. AOX4. PT C/O RIGHT SIDED HEADACHE, 9/10, DIZZINESS, LIGHTHEADEDNESS, AND NAUSEA X 1 WEEK. PT C/O SINUS PRESSURE X YESTERDAY. PT WAS SEEN AT [facility] ER 4 DAYS AGO FOR SIMILAR SYMPTOMS AND WAS TOLD IT WAS RELATED TO DEHYDRATION. PT STATES SHE HAS BEEN RESTING AND INCREASING ORAL FLUIDS BUT WITHOUT RELIEF. GAIT STEADY IN ER. PT DENIES VOMITING. PT DENIES NUMBNESS OR TINGLING.
[2019-04-13 09:46] VITALS: BP 122/76
[2019-04-13] MEDS ORDERED: Dexamethasone 4mg/ml vial IVP ONE (10:00)
[2019-04-13] MEDS ORDERED: DiphenhydrAMINE 50mg/ml Inj IVP ONE (10:00)
--- NOTE | 2019-04-13 10:12 | NUR ---
ED Nurse Note: DECADRON ORDERED BUT INSUFFICIENT QUANTITY IN PYXIS. PHARMACY CALLED TO REFILL.
--- NOTE | 2019-04-13 10:16 | NUR ---
ED Nurse Note: PT TO CT VIA [facility]IRA.
--- NOTE | 2019-04-13 10:22 | Emergency Room Report ---
History of Present Illness General Chief Complaint: Headache Source: Patient Present Illness HPI 24-year-old female history of headaches presents with headache X 1 week frontal aspect, no aggravating relieving factors, not worse in the recumbent position not sudden, not the worst headache of her life, no changes in vision, patient endorses some nausea, no fevers no cough no congestion severity is moderate, constant achy Allergies: Uncoded Allergies: PEACHES (Allergy, Unknown, Hives, 02/07/18) Patient History Past Medical History: see triage record Last Menstrual Period: 03/30/19 Reviewed Nursing Documentation: PMH: Agreed; PSxH: Agreed Nursing Documentation-PMH Past Medical History: No Stated History Review of Systems All Other Systems: negative except mentioned in HPI Physical Exam Vital Signs Date Time Temp Pulse Resp B/P (MAP) Pulse Ox O2 Delivery O2 Flow Rate FiO2 04/13/19 09:39 98.2 106 18 128/75 (92) 98 Room Air Sp02 EP Interpretation: reviewed, normal General Appearance: well appearing, no apparent distress, alert Head: normocephalic, atraumatic Eyes: bilateral eye PERRL, bilateral eye EOMI ENT: uvula midline, moist mucus membranes Neck: supple, thyroid normal, supple/symm/no masses Respiratory: lungs clear, no respiratory distress, no retraction, no accessory muscle use Cardiovascular #1: normal peripheral pulses, regular rate, rhythm, no edema, no gallop, no murmur Gastrointestinal: non tender, soft, no guarding, no rebound Musculoskeletal: normal inspection Neurologic: alert, oriented x3, 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 There are no red flags of KWAN, not sudden in onset, not maximal in onset, no acute neurological findings, no fever with head stiffness. History of headaches yes Low suspicion for subarachnoid hemorrhage, encephalitis, meningitis. Patient given headache cocktail reevaluation 11:02 AM, headache completely resolved, patient feels fine and wants to go home CT/MRI/US Diagnostic Results CT/MRI/US Diagnostic Results : Impression Procedure: CT Head no Contrast Indications: Headache Technique: Spiral acquisitions obtained through the brain. Angled axial and coronal 5 x 5 mm slices were reconstructed. Total dose length product 1400.72 mGycm. CTDI vol(s) 70.38 mGy. Dose reduction achieved using automated exposure control Comparison: None. Findings: No acute intracranial hemorrhage or edema. No mass effect nor midline shift. Normal delgado-white differentiation. Normal size ventricles and extra axial CSF spaces. Intact calvarium. Visualized orbits and sinuses are unremarkable. The mastoids are clear. There a focal soft tissue nodule within the superior aspect of the external ear Impression: Negative for acute intracranial bleed or mass effect Evidence of external ear lesion which should be evident clinically. The CT scanner at [facility] is accredited by the [employer] and the scans are performed using protocols designed to limit radiation exposure to as low as reasonably achievable to attain images of sufficient resolution adequate for diagnostic evaluation. Dictated By: Lee Alcantara MD Electronically Signed By: Lee Alcantara MD Signed Date/Time 04/13/19 1054 CC: Walter Holt MD Last Vital Signs Date Time Temp Pulse Resp B/P (MAP) Pulse Ox O2 Delivery O2 Flow Rate FiO2 04/13/19 09:46 98.4 92 16 122/76 100 Room Air Disposition: HOME, SELF-CARE Condition: Stable Referrals: [facility] Departure Forms: Return to Work Return to Work Date: Apr 14, 2019 Patient Instructions: General Headache Without Cause, Migraine Headache Additional Instructions: The patient was provided with discharge instructions, notified to follow-up with a primary care doctor and or specialist in the next 24-48 hours, and to return to the ED if they have worsening of their symptoms. Please note that this report is being documented using [employer] technology. This can lead to erroneous entry secondary to incorrect interpretation by the dictating instrument. Walter Holt MD Apr 13, 2019 10:22
--- NOTE | 2019-04-13 10:59 | Diagnostic Imaging Report ---
Indications: Headache Technique: Spiral acquisitions obtained through the brain. Angled axial and coronal 5 x 5 mm slices were reconstructed. Total dose length product 1400.72 mGycm. CTDI vol(s) 70.38 mGy. Dose reduction achieved using automated exposure control Comparison: None. Findings: No acute intracranial hemorrhage or edema. No mass effect nor midline shift. Normal delgado-white differentiation. Normal size ventricles and extra axial CSF spaces. Intact calvarium. Visualized orbits and sinuses are unremarkable. The mastoids are clear. There a focal soft tissue nodule within the superior aspect of the external ear Impression: Negative for acute intracranial bleed or mass effect Evidence of external ear lesion which should be evident clinically. The CT scanner at [facility] is accredited by the [employer] and the scans are performed using protocols designed to limit radiation exposure to as low as reasonably achievable to attain images of sufficient resolution adequate for diagnostic evaluation.
--- NOTE | 2019-04-13 11:08 | NUR ---
ED Nurse Note: PT LAYING PEACEFULLY IN BED IN NAD. AOX4. DISCHARGE PAPERWORK EXPLAINED TO PT. PT VERBALIZES UNDERSTANDING AND ALL QUESTIONS ANSWERED. DISCHARGE PAPERWORK GIVEN TO PT, IV AND ID WRISTBAND REMOVED. PT WALKED OUT OF ER WITH STEADY GAIT AND ALL BELONGINGS.
[2019-04-13 11:09] VITALS: BP 124/80
== END 2019-04-13 11:08 | disposition home or self-care (01) ==
LOC: EMR 10:44
DX: G44.209 Tension-type headache, unspecified, not intractable (principal); Z91.018 Allergy to other foods
CPT/HCPCS: 70450; 96361; 96374; 96375; 99284; J0780; J1100; J1200; S0028

== ENCOUNTER 2019-04-15 12:40 | Emergency (ER) | payer SELFPAY ==
[~2019-04-15] VITALS: Ht 162.6 cm; Wt 95.3 kg
[2019-04-15 12:55] VITALS: BP 146/84
--- NOTE | 2019-04-15 13:05 | NUR ---
ED Nurse Note: Pt walked in due to bilateral earache with buzzing sound and dizziness x 1 week. Denies ear discharge. Pt states feels like the "room is spinning". AAO x4, and ambulates with steady gait.
--- NOTE | 2019-04-15 13:50 | Emergency Room Report ---
History of Present Illness General Chief Complaint: Earache Source: Patient Present Illness HPI 24 YO Female presents to the ED c/o dizziness x 7 days. Described as: Episodic in nature and without visual changes. She reports tinnitus intermittently as well as feeling light headed similar to sensation of getting up too quickly. Pt. reports was dx with vertigo but Dramamine OTC is not working as she was previously instructed to take. Pt. denies N/V/F/C, TBI or recent head injury. pt. denies hx of migraines. She denies having a significant PMHx. She denies weakness. She reports symptoms are occurring frequently at work. Denies syncope or near syncope. Denies CP, Palpitations or hx of Anxiety. Denies KWAN or pain. Allergies: Uncoded Allergies: PEACHES (Allergy, Unknown, Hives, 02/07/18) Patient History Past Medical History: see triage record Past Surgical History: none Pertinent Family History: none Last Menstrual Period: 3 weeks ago Immunizations: UTD Reviewed Nursing Documentation: PMH: Agreed; PSxH: Agreed Nursing Documentation-PMH Past Medical History: No Stated History Review of Systems All Other Systems: negative except mentioned in HPI Physical Exam Vital Signs Date Time Temp Pulse Resp B/P (MAP) Pulse Ox O2 Delivery O2 Flow Rate FiO2 04/15/19 12:55 98.1 84 16 146/84 99 Room Air Sp02 EP Interpretation: reviewed, normal General Appearance: no apparent distress, alert, GCS 15, non-toxic Head: normocephalic, atraumatic Eyes: bilateral eye normal inspection, bilateral eye PERRL, bilateral eye EOMI , bilateral eye other - no photophobia ENT: hearing grossly normal, normal voice, nasal congestion - moderate nasal congestion, other - LEft ear canal have mild swelling and a macerated erythematous appearance. no D/C noted, TM is WNL. right canal and TM are WNL. Neck: full range of motion, no meningismus Respiratory: lungs clear, normal breath sounds, speaking full sentences Cardiovascular #1: regular rate, rhythm Musculoskeletal: back normal, gait/station normal, normal range of motion, non- tender Neurologic: alert, oriented x3, responsive, motor strength/tone normal, sensory intact, normal gait, speech normal, other - no ataxia, grossly normal Psychiatric: judgement/insight normal Skin: no rash, normal inspection Lymphatic: no adenopathy Medical Decision Making PA Attestation Dr. Frias is my supervising Physician whom patient management has been discussed with. Diagnostic Impression: Primary Impression: Dizziness Additional Impression: Nasal sinus congestion ER Course 24 YO Female presents to the ED c/o dizziness x 7 days. Described as: Episodic in nature and without visual changes. She reports tinnitus intermittently as well as feeling light headed similar to sensation of getting up too quickly. Pt. reports was dx with vertigo but Dramamine OTC is not working as she was previously instructed to take. Pt. denies N/V/F/C, TBI or recent head injury. pt. denies hx of migraines. She denies having a significant PMHx. She denies weakness. She reports symptoms are occurring frequently at work. Denies syncope or near syncope. Denies CP, Palpitations or hx of Anxiety. Denies KWAN or pain. Ddx considered but are not limited to Mnire's, BPPV, labyrinthitis, cerebellar stroke, hypovolemia, cardiac cause, anxiety just to name a few. Vital signs: are WNL, pt. is afebrile H&PE are most consistent with :normal MSE, neuro exam normal. Pt. severely congested. mild left OE. No focal deficit to indicate TIA or CVA. No vertical nystagmus. Reviewed pt. Previous visit charts were reviewed. Pt. had normal labs, and normal CT imaging less than 1 week ago. Because of lack of focality and red flags, and recent normal imaging I do not feel repeat labs and CT scan will be beneficial. ORDERS: -none ED INTERVENTIONS: -D/w pt. appropriate specialty follow up for persistent symptoms. Will d/c pt. with Meclizine for vertigo. I am treating this pt's nasal congestion and OE as I believe these may have a bearing on her persistent symptoms. -I do not identify an emergent condition at this time. With current presentation , pt. is stable for close outpatient follow up and conservative treatment. D/ w pt. to return promptly to ED with worsening or new symptoms.- Pt. verbalizes' understanding and agreement with proposed treatment plan. DISCHARGE: At this time pt. is stable for d/c to home. Will provide printed patient care instructions, and any necessary prescriptions. Care plan and follow up instructions have been discussed with the patient prior to discharge. Last Vital Signs Date Time Temp Pulse Resp B/P (MAP) Pulse Ox O2 Delivery O2 Flow Rate FiO2 04/15/19 12:55 98.1 84 16 146/84 (104) 99 Room Air Disposition: HOME, SELF-CARE Condition: Stable Scripts Cetirizine Hcl* (ZYRTEC*) 10 Mg Tablet 10 MG ORAL DAILY, #30 TAB 0 Refills Prov: Veronica Dasilva 04/15/19 Neomycin/Polymyxin B Sulf/Hc* (CORTISPORIN EAR SOLUTION*) 10 Ml Solution 4 DROP LEFT EAR QID for 5 Days, #10 ML 0 Refills Prov: Veronica Dasilva 04/15/19 Meclizine Hcl* (VERTICALM*) 25 Mg Tablet 25 MG ORAL THREE TIMES A DAY for 5 Days, #15 TAB Prov: Veronica Dasilva 04/15/19 Oxymetazoline HCl (Afrin) 15 Ml [place] 2 SPRAYS NASAL TWICE A DAY for 3 Days, #15 SPRAY * DO NOT USE FOR MORE THAN 3 DAYS! 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 May return Sooner if Symptoms have resolved. Return to Full Activity: Apr 22, 2019 Patient Instructions: Dizziness, [id number], Otitis Externa, [id number] Additional Instructions: Take medications as directed. Follow up with a Primary Care Provider in 3-5 days For a referral to have NEUROLOGIST Evaluation, even if your symptoms have resolved. --Please review list of primary care clinics, if you do not already have a primary care provider Return sooner to ED if new symptoms occur, or current symptoms become worse. - Please note that this Emergency Department Report was dictated using [employer] technology software, occasionally this can lead to erroneous entry secondary to interpretation by the dictation equipment. Veronica Dasilva Apr 15, 2019 13:50
[2019-04-15] MEDS ORDERED: VERTICALM25 MG ORAL (13:54)
[2019-04-15] MEDS ORDERED: AFRIN NASAL SPR30 ML NASAL (13:54)
[2019-04-15] MEDS ORDERED: CORTISPORIN EAR10 ML LEFT EAR (13:54)
--- NOTE | 2019-04-15 13:58 | NUR ---
ED Nurse Note: PT SITTING PEACEFULLY IN BED IN NAD. AOX4. PRESCRIPTIONS AND DISCHARGE PAPERWORK EXPLAINED TO PT. PT VERBALIZES UNDERSTANDING AND ALL QUESTIONS ANSWERED. PRESCRIPTIONS AND DISCHARGE PAPERWORK GIVEN TO PT AND ID WRISTBAND REMOVED. PT WALKED OUT OF ER WITH STEADY GAIT AND ALL BELONGINGS.
[2019-04-15 13:59] VITALS: BP 142/82
[2019-04-15] MEDS ORDERED: ZYRTEC10 MG ORAL (14:00)
== END 2019-04-15 14:04 | disposition home or self-care (01) ==
LOC: EMR 13:29
DX: R42 Dizziness and giddiness (principal); R09.81 Nasal congestion; Z91.018 Allergy to other foods
CPT/HCPCS: 99283

== ENCOUNTER 2019-05-30 09:24 | Emergency (ER) | payer SELFPAY ==
[~2019-05-30] VITALS: Ht 162.6 cm; Wt 96.2 kg
[~2019-05-30 09:24] MED LIST changes: +AFRIN NASAL SPR30 ML NASAL; +CORTISPORIN EAR10 ML LEFT EAR; +VERTICALM25 MG ORAL; +ZYRTEC10 MG ORAL
[2019-05-30] MEDS ORDERED: REGLAN5 MG ORAL (09:55)
--- NOTE | 2019-05-30 09:55 | Emergency Room Report ---
History of Present Illness General Chief Complaint: Abdominal Pain Source: Patient Present Illness HPI 24-year-old female presents with epigastric fullness x5 days no fevers no chills she feels like when she eats she feels full quite quickly, no aggravating or relieving factors severity is mild, she endorses a mild epigastric pain no nausea no vomiting no chest pain no shortness of breath, + diarrhea Allergies: Uncoded Allergies: PEACHES (Allergy, Unknown, Hives, 02/07/18) Patient History Past Medical History: see triage record Last Menstrual Period: 05/2019 Now: No Reviewed Nursing Documentation: PMH: Agreed; PSxH: Agreed Nursing Documentation-PMH Past Medical History: No Stated History Review of Systems All Other Systems: negative except mentioned in HPI Physical Exam Vital Signs Date Time Temp Pulse Resp B/P (MAP) Pulse Ox O2 Delivery O2 Flow Rate FiO2 05/30/19 09:30 98.4 76 16 145/89 (107) 99 Room Air Sp02 EP Interpretation: reviewed, normal General Appearance: well appearing, no apparent distress, alert Head: normocephalic, atraumatic Eyes: bilateral eye PERRL, bilateral eye EOMI ENT: uvula midline, moist mucus membranes Neck: supple, thyroid normal, supple/symm/no masses Respiratory: lungs clear, no respiratory distress, no retraction, no accessory muscle use Cardiovascular #1: normal peripheral pulses, regular rate, rhythm, no edema, no gallop, no murmur Gastrointestinal: non tender, soft, no guarding, no rebound Musculoskeletal: normal inspection Neurologic: alert, oriented x3 Psychiatric: mood/affect normal Skin: no rash, warm/dry Medical Decision Making Diagnostic Impression: Primary Impression: Epigastric fullness ER Course 24-year-old female presents with epigastric fullness differential diagnosis includes pancreatitis, cholecystitis, dysmotility Patient given GI cocktail with resolution of her symptoms Disposition home with return precautions Last Vital Signs Date Time Temp Pulse Resp B/P (MAP) Pulse Ox O2 Delivery O2 Flow Rate FiO2 05/30/19 09:30 98.4 76 16 145/89 (107) 99 Room Air Disposition: HOME, SELF-CARE Condition: Stable Scripts Metoclopramide Hcl* (REGLAN*) 5 Mg Tablet 5 MG ORAL EVERY 8 HOURS PRN for Abdominal cramps, #30 TAB Prov: Walter Holt MD 05/30/19 Referrals: [facility] Rosalva Thomas. [facility] Patient Instructions: Abdominal Pain, Adult Additional Instructions: The patient was provided with discharge instructions, notified to follow-up with a primary care doctor and or specialist in the next 24-48 hours, and to return to the ED if they have worsening of their symptoms. Please note that this report is being documented using DRAGON technology. This can lead to erroneous entry secondary to incorrect interpretation by the dictating instrument. FOLLOW-UP WITH GASTROENTEROLOGY Walter Holt MD May 30, 2019 09:55
[2019-05-30 09:58] VITALS: BP 145/89
[2019-05-30] MEDS ORDERED: Lidocaine 2% Visc 15ml soln ORAL ONE (10:00)
[2019-05-30] MEDS ORDERED: Mylanta II UD 30ml ORAL ONE (10:00)
[2019-05-30] MEDS ORDERED: Metoclopramide 10mg/10ml Liq ORAL ONE (10:00)
--- NOTE | 2019-05-30 10:02 | NUR ---
ED Nurse Note:pt. came with c/o epigastric pain, VSS, no signs of distress ,urine sent to labs, given PO meds
--- NOTE | 2019-05-30 10:40 | NUR ---
ER DISCHARGE NOTE: Patient is cleared to be discharged per ERMD, pt is aox4, on room air, with stable vital signs. pt was given dc and prescription instructions, pt was able to verbalize understanding, pt is able to ambulate with steady gait. pt took all belongings.
[2019-05-30 10:47] VITALS: BP 145/89
== END 2019-05-30 10:50 | disposition home or self-care (01) ==
LOC: EMR 09:40
DX: R10.13 Epigastric pain (principal); Z91.018 Allergy to other foods
CPT/HCPCS: 80307; 81025; 99283